=== PATIENT | female | born 1960 | race Caucasian/White ===

== ENCOUNTER → 2018-04-23 | Outpatient (CLI) | payer OTHER ==
[~2018-04-23] MED LIST: CARI350 PO; CODACE30 PO; CYCL10 PO; ESTR2 PO; Flagyl500 MG PO; HYDR1TAB94 PO; IBUP800 PO; IBUPROFEN PM S1 EACH PO; OXYACE5T PO; RXOXYACE PO; TAMS.4ER PO; TRAZ50 PO; VITAMINS
== END ==
LOC: LAB 09:27 → LAB SHORT 09:27
DX: N39.0 Urinary tract infection, site not specified (principal)
CPT/HCPCS: 87077; 87086; 87186

== ENCOUNTER → 2018-10-21 | Outpatient (CLI) | payer OTHER ==
[2018-10-21 17:30] LABS: Appearance, Urine Clear (Clear); Bilirubin, Urine Neg (Neg); Blood, Urine 2+ (Neg); Color, Urine Yellow (P-Yellow); Glucose Qualitative, Urine Neg (Neg); Ketones, Urine Neg (Neg); Leukocyte Esterase, Urine 1+ (Neg); Nitrite, Urine Neg (Neg); Protein, Urine Neg (Neg); Specific Gravity, Urine 1.015 (1.003-1.022); Urobilinogen, Urine NORM (Normal)
[2018-10-21 17:40] LABS: Bacteria Many /hpf; Squamous Epithelial Cells Few /hpf (Few)
== END ==
LOC: LAB SHORT 13:00 → LAB SRC 13:00
PROVIDERS: Registered Nurse
DX: R30.0 Dysuria (principal)
CPT/HCPCS: 81001; 87077; 87086; 87186

== ENCOUNTER → 2018-11-04 | Outpatient (CLI) | payer OTHER | END | disposition home or self-care (01) | LOC: LAB SHORT 18:20 → LAB 18:20 | DX: R30.0 Dysuria (principal) | CPT/HCPCS: 87086 ==

== ENCOUNTER → 2019-08-13 | Outpatient (CLI) | payer OTHER ==
[2019-08-13 18:14] LABS: Bilirubin, Urine Neg (Neg); Blood, Urine 4+ (Neg); Glucose Qualitative, Urine Neg (Neg); Ketones, Urine 1+ (Neg); Leukocyte Esterase, Urine 3+ (Neg); Nitrite, Urine Pos (Neg); Protein, Urine 2+ (Neg); Urobilinogen, Urine NORM (Normal)
[2019-08-13 18:41] LABS: Appearance, Urine Cloudy (Clear); Color, Urine Yellow (P-Yellow)
[2019-08-13 18:44] LABS: Red Blood Cells, Urine 0-2 /hpf (0-2); Squamous Epithelial Cells Mod /hpf (Few); White Blood Cells, Urine 25-50 /hpf (0-5)
[2019-08-13 18:45] LABS: Bacteria Many /hpf
== END | disposition home or self-care (01) ==
LOC: LAB 17:11 → LAB SHORT 17:11
PROVIDERS: Registered Nurse
DX: R30.0 Dysuria (principal)
CPT/HCPCS: 81001; 87077; 87086; 87186

== ENCOUNTER → 2020-01-24 | Outpatient (CLI) | payer OTHER ==
[2020-01-24 18:00] LABS: Bilirubin, Urine Neg (Neg); Blood, Urine 4+ (Neg); Glucose Qualitative, Urine Neg (Neg); Ketones, Urine 1+ (Neg); Leukocyte Esterase, Urine 3+ (Neg); Nitrite, Urine Pos (Neg); Protein, Urine 2+ (Neg); Urobilinogen, Urine NORM (Normal)
[2020-01-24 18:03] LABS: Appearance, Urine Hazy (Clear); Color, Urine Yellow (P-Yellow)
[2020-01-24 18:18] LABS: Squamous Epithelial Cells Not Seen /hpf (Few); White Blood Cells, Urine TNTC /hpf (0-5)
[2020-01-24 18:19] LABS: Bacteria Many /hpf; Hyaline Casts 0-2 /lpf (0-2); Mucus Light (0-Heavy)
== END | disposition home or self-care (01) ==
LOC: LAB SHORT 16:55 → LAB 16:55
PROVIDERS: Registered Nurse
DX: R30.0 Dysuria (principal)
CPT/HCPCS: 81001; 87077; 87086; 87186

== ENCOUNTER → 2020-08-17 | Outpatient (CLI) | payer OTHER ==
[2020-08-17 19:54] LABS: Appearance, Urine Hazy (Clear); Bilirubin, Urine Neg (Neg); Blood, Urine 5+ (Neg); Color, Urine Yellow (P-Yellow); Glucose Qualitative, Urine Neg (Neg); Ketones, Urine Neg (Neg); Leukocyte Esterase, Urine 3+ (Neg); Nitrite, Urine Pos (Neg); Protein, Urine 1+ (Neg); Specific Gravity, Urine 1.025 (1.003-1.022); Urobilinogen, Urine NORM (Normal)
[2020-08-17 20:08] LABS: Bacteria Many /hpf; Red Blood Cells, Urine 0-2 /hpf (0-2); Squamous Epithelial Cells Few /hpf (Few); White Blood Cells, Urine 25-50 /hpf (0-5)
== END | disposition home or self-care (01) ==
LOC: LAB SHORT 18:07 → LAB 18:07
PROVIDERS: Registered Nurse
DX: R30.0 Dysuria (principal)
CPT/HCPCS: 81001; 87077; 87086; 87186

== ENCOUNTER 2021-05-22 19:41 | Inpatient (IN) | payer OTHER ==
[~2021-05-22] VITALS: Ht 157.5 cm; Wt 61.2 kg
[2021-05-22 20:21] LABS: Hematocrit 36.2 % (33.0-51.0); Hemoglobin 12.2 g/dL (11.5-16.0); Mean Corpuscular HGB 29.3 pg (26.0-34.0); Mean Corpuscular HGB Conc 33.7 g/dL (31.5-36.5); Mean Corpuscular Volume 87 fL (80-100); Platelet Count 152 K/mm3 (150-400); RDW Coefficient Variation 12.7 % (11.7-14.2); RDW Standard Deviation 40.4 fL (35.1-46.3); Red Blood Cell Count 4.17 M/mm3 (3.80-5.20); White Blood Cell Count 1.52 K/mm3 (4.00-11.30)
[2021-05-22 20:47] LABS: BAND PERCENT MAN 32 % (0-8); BASOPHILS PERCENT MAN 0 % (0-2); EOSINOPHILS PERCENT MAN 0 % (0-6); LYMPHOCYTES ABSOLUTE MAN 0.15 K/mm3 (0.84-5.20); LYMPHOCYTES PERCENT MAN 10 % (21-46); METAMYELOCYTE ABSOLUTE MAN 0.06 K/mm3 (0.00-0.00); METAMYELOCYTE PERCENT MAN 4 % (0-0); MONOCYTES ABSOLUTE MAN 0.09 K/mm3 (0.16-1.47); MONOCYTES PERCENT MAN 6 % (4-13); MYELOCYTE ABSOLUTE MAN 0.03 K/mm3 (0.00-0.00); MYELOCYTE PERCENT MAN 2 % (0-0); NEUTROPHILS ABSOLUTE MAN 1.18 K/mm3 (1.96-9.15); SEG NEUTROPHILS PERCENT MAN 46 % (41-73); TOTAL CELLS COUNTED 50
[2021-05-22 20:49] LABS: PCO2 Arterial 31.6 mmHg (35-45); PO2 Arterial 57.8 mmHg (80-100); pH Blood Arterial 7.38 (7.35-7.45)
[2021-05-22 21:02] LABS: C-Reactive Protein, High Sens. >190.000 mg/L (0.000-3.000)
[2021-05-22] MEDS ORDERED: BUPRENORPHINE HC8 MG SL (21:24)
[2021-05-22 22:34] LABS: Alanine Aminotransfer (ALT/SGP 47 U/L (12-78); Albumin, Blood 2.3 g/dL (3.4-5.0); Albumin/Globulin Ratio 0.5 (0.8-1.8); Alk Phos 253 U/L (50-136); Anion Gap 16 mmol/L (6-16); Aspartate Aminotrans (AST/SGOT 151 U/L (12-37); Bilirubin, Total 1.4 mg/dL (0.1-1.0); Blood Urea Nitrogen 65 mg/dL (8-24); Bun/Creatinine Ratio 17.2 (12.0-20.0); CO2, Blood 19 mmol/L (21-32); CPK Creatine Kinase 143 U/L (26-193); Calcium, Blood 7.9 mg/dL (8.5-10.1); Chloride, Blood 99 mmol/L (98-108); Creatinine, Blood 3.78 mg/dL (0.40-1.00); Globulin, Blood 4.4 g/dL (2.2-4.0); Glomerular Filtration Rate 12 (60-); Glucose, Blood 53 mg/dL (70-99); Potassium, Blood 3.4 mmol/L (3.5-5.5); Sodium, Blood 134 mmol/L (136-145); Total Protein, Blood 6.7 g/dL (6.4-8.2)
[2021-05-22 22:35] LABS: Troponin I <0.015 ng/mL (0.000-0.040)
[2021-05-22 23:21] LABS: International Normalized Ratio 1.01; Prothrombin Time Results 10.9 Sec (9.7-11.5)
--- NOTE | 2021-05-23 02:20 | NUR ---
PT ARRIVED TO ICU FROM ED VIA GURNEY. PT TRANSFERRED TO ICU BED VIA SLIDE SHEET, PT COMPLAINING OF 10/10 PAIN WITH MOVEMENT. PT HAD HEPARIN INFUSING AT 15 UNITS/KG/HR UPON ARRIVAL. AIRVO IN PLACE, SETTINGS 60L 95% WITH SPO2 >90%. SKIN INTACT. HR 90'S SR ON MONITOR. SBP 80'S. PT ALERT AND ORIENTED, HAVING A DIFFICULT TIME VERBALIZING STATES THAT IT CAUSES HER PAIN. LUNGS CLEAR WITH DIM BASES. HYPOACTIVE BT'S.
[2021-05-23 03:33] LABS: Hematocrit 32.5 % (33.0-51.0); Hemoglobin 11.2 g/dL (11.5-16.0); Mean Corpuscular HGB 29.6 pg (26.0-34.0); Mean Corpuscular HGB Conc 34.5 g/dL (31.5-36.5); Mean Corpuscular Volume 86 fL (80-100); Mean Platelet Volume 11.1 fL (9.1-12.4); Platelet Count 123 K/mm3 (150-400); RDW Coefficient Variation 12.7 % (11.7-14.2); RDW Standard Deviation 40.3 fL (35.1-46.3); Red Blood Cell Count 3.78 M/mm3 (3.80-5.20)
[2021-05-23 03:35] LABS: BASOPHILS ABSOLUTE AUTO 0.01 K/mm3 (0.00-0.23); BASOPHILS PERCENT AUTO 1 % (0-2); EOSINOPHILS PERCENT AUTO 0 % (0-6); IMMATURE GRAN ABSOLUTE AUTO 0.02 K/mm3 (0.00-0.10); IMMATURE GRAN PERCENT AUTO 2 % (0-1); LYMPHOCYTES ABSOLUTE AUTO 0.06 K/mm3 (0.84-5.20); LYMPHOCYTES PERCENT AUTO 7 % (21-46); MONOCYTES ABSOLUTE AUTO 0.02 K/mm3 (0.16-1.47); MONOCYTES PERCENT AUTO 2 % (4-13); NEUTROPHILS ABSOLUTE AUTO 0.72 K/mm3 (1.96-9.15); NEUTROPHILS PERCENT AUTO 87 % (41-73)
[2021-05-23 03:36] LABS: White Blood Cell Count 0.83 K/mm3 (4.00-11.30)
[2021-05-23 03:54] LABS: Alanine Aminotransfer (ALT/SGP 44 U/L (12-78); Albumin/Globulin Ratio 0.5 (0.8-1.8); Alk Phos 227 U/L (50-136); Anion Gap 14 mmol/L (6-16); Aspartate Aminotrans (AST/SGOT 129 U/L (12-37); Bilirubin, Total 1.5 mg/dL (0.1-1.0); Blood Urea Nitrogen 67 mg/dL (8-24); Bun/Creatinine Ratio 18.6 (12.0-20.0); CO2, Blood 19 mmol/L (21-32); CPK Creatine Kinase 118 U/L (26-193); Calcium, Blood 7.4 mg/dL (8.5-10.1); Chloride, Blood 101 mmol/L (98-108); Creatinine, Blood 3.61 mg/dL (0.40-1.00); Glomerular Filtration Rate 13 (60-); Glucose, Blood 85 mg/dL (70-99); Potassium, Blood 3.5 mmol/L (3.5-5.5); Sodium, Blood 134 mmol/L (136-145); Troponin I <0.015 ng/mL (0.000-0.040)
--- NOTE | 2021-05-23 04:30 | NUR ---
CALL PLACED TO DR DANG REGARDING PT'S CRITICAL WBC VALUE OF 0.83. ALSO NOTIFIED ABOUT DECREASING BLOOD GLUCOSE LEVELS AND BLOOD PRESSURE 88/50 ON 5 MCG/KG OF LEVOPHED. NEW ORDERS PLACED.
--- NOTE | 2021-05-23 07:22 | NUR ---
SHIFT SUMMARY PT RESTING IN BED, PRN ATIVAN RECENTLY GIVEN. PT AWAKENS TO VERBAL STIMULI. AIRVO CONTINUES AT 60L 95%, PT PULLED NC OUT OF NOSE SATS DROPPED TO LOW 80'S MASK PLACED BACK ON PT SATS BACK UP TO 90'S. PT CONTINUES TO COMPLAIN OF PAIN WITH ANY MOVEMENT, DECLINED REPOSITIONING. HEPARIN INFUSING AT 15 UNITS/KG/HR, LEVO AT 8 MCG/KG AND D51/2NS AT 75 ML. LUNGS CONTINUE TO BE CLEAR WITH DIM BASES.
--- NOTE | 2021-05-23 07:30 | NUR ---
Receieved report from Miriam QUINTANA. Patient on airvo with mask and settings of 60L 94% and sats 87-91%. She is very slow to answer and difficult to understand. Used swabs to wet mouth and was a little better to unserstand. He IV was laying in bed and placed PICC line in HEIDY 75 length, 6 out. She has 18ga RAC and moved line to PICC , flushed and SL's. She is able to MATHEWS but painful. Upper and lower quads painful to palpation. US was just here and I belive did kidneys.
--- NOTE | 2021-05-23 09:49 | NUR ---
Recheck CBG and was [address] Garcia and stopped D5NS at 75 and started D10 at 75ml/hr. Increased Heparin yo 17 units/kg/hr, Levophed is at 24 mcg/min and systolic 100's. Dr Garcia had me start LR Bolus earlier with little success.
[2021-05-23 12:04] LABS: Source, Urine Catheter
--- NOTE | 2021-05-23 12:05 | NUR ---
Patient has been having decreased sats mid 80 and had RT max out AirVo to 60L 95% and no change. Talked with Dr Garcia whom had already had conversation with patient and we intubated at 1123. We intubated with Propofol and succ's. Placed 16fr Temp hoffman. 8.0 ET and 25 cm at teeth.
[2021-05-23 12:16] LABS: Hematocrit 28.7 % (33.0-51.0); Hemoglobin 9.6 g/dL (11.5-16.0); Mean Corpuscular HGB 29.4 pg (26.0-34.0); Mean Corpuscular HGB Conc 33.4 g/dL (31.5-36.5); Mean Corpuscular Volume 88 fL (80-100); Mean Platelet Volume 11.3 fL (9.1-12.4); Platelet Count 125 K/mm3 (150-400); RDW Coefficient Variation 12.7 % (11.7-14.2); RDW Standard Deviation 41.1 fL (35.1-46.3); Red Blood Cell Count 3.26 M/mm3 (3.80-5.20)
[2021-05-23 12:17] LABS: BASOPHILS ABSOLUTE AUTO 0.01 K/mm3 (0.00-0.23); BASOPHILS PERCENT AUTO 1 % (0-2); EOSINOPHILS PERCENT AUTO 0 % (0-6); IMMATURE GRAN ABSOLUTE AUTO 0.03 K/mm3 (0.00-0.10); IMMATURE GRAN PERCENT AUTO 3 % (0-1); LYMPHOCYTES ABSOLUTE AUTO 0.08 K/mm3 (0.84-5.20); LYMPHOCYTES PERCENT AUTO 8 % (21-46); MONOCYTES ABSOLUTE AUTO 0.02 K/mm3 (0.16-1.47); MONOCYTES PERCENT AUTO 2 % (4-13); NEUTROPHILS ABSOLUTE AUTO 0.85 K/mm3 (1.96-9.15); NEUTROPHILS PERCENT AUTO 86 % (41-73)
[2021-05-23 12:19] LABS: White Blood Cell Count 0.99 K/mm3 (4.00-11.30)
[2021-05-23 12:29] LABS: Albumin, Blood 1.4 g/dL (3.4-5.0); Albumin/Globulin Ratio 0.4 (0.8-1.8); Bilirubin, Total 1.3 mg/dL (0.1-1.0); Bun/Creatinine Ratio 23.7 (12.0-20.0); Calcium, Blood 6.6 mg/dL (8.5-10.1); Creatinine, Blood 2.79 mg/dL (0.40-1.00); Globulin, Blood 3.3 g/dL (2.2-4.0); Potassium, Blood 3.6 mmol/L (3.5-5.5); Total Protein, Blood 4.7 g/dL (6.4-8.2)
[2021-05-23 13:10] LABS: Appearance, Urine Hazy (Clear); Bilirubin, Urine Neg (Neg); Blood, Urine 2+ (Neg); Color, Urine Amber (P-Yellow); Glucose Qualitative, Urine Neg (Neg); Ketones, Urine Neg (Neg); Leukocyte Esterase, Urine 1+ (Neg); Nitrite, Urine Neg (Neg); Protein, Urine 3+ (Neg); Urobilinogen, Urine NORM (Normal)
--- NOTE | 2021-05-23 13:14 | NUR ---
eCHOCARDIOGRAM USING 0.50ML OF DEFINITY CONTRAST PERFORMED.
[2021-05-23 13:19] LABS: Amorphous Mod (0-Heavy); Bacteria Few /hpf; Granular Casts 0-2 /lpf (0); Hyaline Casts 0-2 /lpf (0-2); Squamous Epithelial Cells Mod /hpf (Few)
--- NOTE | 2021-05-23 14:00 | NUR ---
Patient is intubated and sedated and resting well with vent settings 16/350/90%/15 and sats 91%. Picc Line in HEIDY infusing Levophed at 30 mcg/min, Vasopressin 0.04 units/min, Propofol at 20 mcg/kg/min, 2nd bolus LR, Calcium cloride and Vanco, NS TKO, D10 at 75 ml/hr. Gonzalez has dark zeb urine in adequate amounts.
[2021-05-23 14:08] LABS: PO2 Arterial 59.9 mmHg (80-100); pH Blood Arterial 7.28 (7.35-7.45)
--- NOTE | 2021-05-23 16:00 | NUR ---
Patient went and had CT abd and nuc med study for PE, results pending. No other vent or gtt changes.
[2021-05-23 17:13] LABS: Hematocrit 30.4 % (33.0-51.0); Hemoglobin 10.2 g/dL (11.5-16.0); Mean Corpuscular HGB 29.5 pg (26.0-34.0); Mean Corpuscular HGB Conc 33.6 g/dL (31.5-36.5); Mean Corpuscular Volume 88 fL (80-100); Mean Platelet Volume 11.8 fL (9.1-12.4); Platelet Count 96 K/mm3 (150-400); RDW Coefficient Variation 13.2 % (11.7-14.2); RDW Standard Deviation 42.5 fL (35.1-46.3); Red Blood Cell Count 3.46 M/mm3 (3.80-5.20); White Blood Cell Count 3.29 K/mm3 (4.00-11.30)
[2021-05-23 17:30] LABS: Albumin, Blood 1.4 g/dL (3.4-5.0); Albumin/Globulin Ratio 0.4 (0.8-1.8); Bilirubin, Total 1.4 mg/dL (0.1-1.0); Bun/Creatinine Ratio 23.6 (12.0-20.0); Calcium, Blood 8.4 mg/dL (8.5-10.1); Creatinine, Blood 2.8 mg/dL (0.40-1.00); Globulin, Blood 3.3 g/dL (2.2-4.0); Magnesium, Blood 1.9 mg/dL (1.6-2.4); Potassium, Blood 3.6 mmol/L (3.5-5.5); Total Protein, Blood 4.7 g/dL (6.4-8.2)
[2021-05-23 17:41] LABS: BAND PERCENT MAN 31 % (0-8); BASOPHILS PERCENT MAN 0 % (0-2); EOSINOPHILS PERCENT MAN 0 % (0-6); LYMPHOCYTES ABSOLUTE MAN 0.19 K/mm3 (0.84-5.20); LYMPHOCYTES PERCENT MAN 6 % (21-46); METAMYELOCYTE ABSOLUTE MAN 1.05 K/mm3 (0.00-0.00); METAMYELOCYTE PERCENT MAN 32 % (0-0); MONOCYTES ABSOLUTE MAN 0.13 K/mm3 (0.16-1.47); MONOCYTES PERCENT MAN 4 % (4-13); SEG NEUTROPHILS PERCENT MAN 27 % (41-73); TOTAL CELLS COUNTED 100
--- NOTE | 2021-05-23 18:00 | NUR ---
Patient has been resting well on vent with minimal sedation. She is in bilateral soft wrist restraints to prevent self extubation. Vent settings are 16/350/90%/15 and sats 92%. She has PICC line HEIDY infusing Levophed 30 mcg/kg/min, Vaospressin 0.04 units/min, D10 at 75 ml/hr, Propofol at 20 mcg/kg/min, NS TKO. Gonzalez had 600 zeb colored urine out. She has 18ga IV in RAC that draws well for labs.
--- NOTE | 2021-05-23 18:35 | NUR ---
Friends are by and dad decided not to come. Friends still feel that she has a chance as she came through a similar tragedy. She has sjown no new changes for the positive.
--- NOTE | 2021-05-23 19:30 | NUR ---
REPORT RECEIVED-CARE ASSUMED. PT VENTED-SEDATED, GTTS NOTED IN FLOWSHEET. CONTINUE ASSESSMENT AND CARE.
--- NOTE | 2021-05-23 20:17 | NUR ---
HEPARIN RATE DOSE CHANGE PER PHARMACY ORDER- TO 16.5 UNITS/KR/HR, 19.5 ML/HR. CHACKED WITH RICKY QUINTANA. HOUSESMITH AWARE.
[2021-05-24 01:18] LABS: PCO2 Arterial 47.8 mmHg (35-45); PO2 Arterial 94.4 mmHg (80-100); pH Blood Arterial 7.05 (7.35-7.45)
--- NOTE | 2021-05-24 01:56 | NUR ---
UPDATE: ONGOING DECLINE IN PT STATUS. POST BATH PT WITH DECREASED SAT-PEAK PRESSURING ON VENT-PLACED VENT ON 100% AND-RT CALLED STAT TO ROOM-INCREASED PROPOFOL GTT TO 30, PT CONTINUE TO PEAK PRESSURE ON CTQV-WR-PPDA PLACEMENT CHECKED-GOOD/EQUAL BILAT BS, PLACEMENT UNCHANGED @ 25. INCREASED PROPOFOL GTT FOR PT COMFORT-PT MOVING ARMS AND LEGS- CONTINUE ASSESSMENT-RT IN ROOM-CHARGE NURSE NOTIFIED- SAT PROB POSITION CHECKED AND CHANGED-CONTINUE TO INCREASE PROPOFOL-RT REMOVED PT FROM VENT AND BAGGED-100%, NOTIFIED-ATIVAN PUSH [id number] BAGGING @ 100%- ORDERED FENTYNAL C[facility] AISLE CASHIER-NIMBEX. TO4 4 OUT OF 4 @ SENSITIVITY OF 8 PRE START OF NIMBEX- PT RETURNED TO VENT- SETTING CHANGED AND RT DISCUSSED WITH MD. PT'S TEMP INCREASING-ICE BAGS PLACE IN GROIN-ARMPITS. ROOM TEMP LOWERED, NOTIFIED-TYLENOL ORDERED AND GIVEN. CONTINUE ASSESSMENTS AND CARE. ORDERED PRONE POSITION TILL DAYSHIFT-PLACE IN PRONE @ 0100. TO4 CONTINUES 4 OUT OF 4 @ SENSITIVITY 8. 0 OUT OF 4 @ LOWER SENSITIVITY. ANG DONE-SEE LAB RESULTS-CRITICAL LABS CALLED TO -DR. LEAVITT-BICARB GTT ORDERED. CONTINUE CARE.
--- NOTE | 2021-05-24 02:12 | NUR ---
SAT MONITOR -PROBE NOT READING-ATTEMPTED FORHEAD,EAR,FOOT,FINGER,NOSE-DR. LEAVITT AWARE-PAO2 CURRENTLY 94.4 WITH SATS 94.9 ON ABG.
--- NOTE | 2021-05-24 03:24 | NUR ---
A-LINE -LINE CHANGED AND ZEROED
--- NOTE | 2021-05-24 03:38 | NUR ---
LABS SENT. TO4 0/0. NIMBEX WEAN TO 2. INCRASED TEMP-COOLING BLANKET REMAINS ICE CHANGED OUT ON GROIN AN ARMPITS. NUCLEAR TECHNICIAN AT BEDSIDE. CONTINUE ASSESSMENT
[2021-05-24 05:17] LABS: Hematocrit 26.6 % (33.0-51.0); Mean Corpuscular HGB 30.2 pg (26.0-34.0); Mean Corpuscular HGB Conc 33.8 g/dL (31.5-36.5); Mean Corpuscular Volume 89 fL (80-100); Mean Platelet Volume 12.9 fL (9.1-12.4); NRBC ABSOLUTE 0.02 K/mm3 (0.00-0.02); NRBC Auto 0.4 /100 WBC (0.0-0.2); RDW Coefficient Variation 13.3 % (11.7-14.2); RDW Standard Deviation 43.7 fL (35.1-46.3); Red Blood Cell Count 2.98 M/mm3 (3.80-5.20); White Blood Cell Count 5.25 K/mm3 (4.00-11.30)
--- NOTE | 2021-05-24 05:22 | NUR ---
CHANGED TEMP FROM APONTE TO RECTAL.
[2021-05-24 05:40] LABS: Magnesium, Blood 2.6 mg/dL (1.6-2.4)
[2021-05-24 05:43] LABS: Platelet Count 21 K/mm3 (150-400)
[2021-05-24 05:48] LABS: Alanine Aminotransfer (ALT/SGP 38 U/L (12-78); Albumin, Blood 1.2 g/dL (3.4-5.0); Albumin/Globulin Ratio 0.4 (0.8-1.8); Alk Phos 231 U/L (50-136); Anion Gap 21 mmol/L (6-16); Aspartate Aminotrans (AST/SGOT 185 U/L (12-37); Bilirubin, Total 1.5 mg/dL (0.1-1.0); Blood Urea Nitrogen 72 mg/dL (8-24); Bun/Creatinine Ratio 22.4 (12.0-20.0); CO2, Blood 11 mmol/L (21-32); Chloride, Blood 99 mmol/L (98-108); Creatinine, Blood 3.22 mg/dL (0.40-1.00); Glomerular Filtration Rate 15 (60-); Glucose, Blood 82 mg/dL (70-99); Potassium, Blood 5.9 mmol/L (3.5-5.5); Sodium, Blood 131 mmol/L (136-145); Total Protein, Blood 4.2 g/dL (6.4-8.2); Vancomycin, Random 15.6 ug/mL
[2021-05-24 06:02] LABS: Phosphorus, Blood 8.6 mg/dL (2.5-4.9)
--- NOTE | 2021-05-24 06:13 | NUR ---
DR. LEAVITT NOTIFIED-WIDE QRS,LABS, SKIN, TEMP- MD ON HIS WAY IN TO BEDSIDE-NEW ORDERS PLACED NOW.
[2021-05-24 06:20] LABS: BAND PERCENT MAN 40 % (0-8); BASOPHILS PERCENT MAN 0 % (0-2); EOSINOPHILS PERCENT MAN 0 % (0-6); LYMPHOCYTES ABSOLUTE MAN 0.15 K/mm3 (0.84-5.20); LYMPHOCYTES PERCENT MAN 3 % (21-46); METAMYELOCYTE PERCENT MAN 2 % (0-0); MONOCYTES ABSOLUTE MAN 0.15 K/mm3 (0.16-1.47); MONOCYTES PERCENT MAN 3 % (4-13); NEUTROPHILS ABSOLUTE MAN 4.83 K/mm3 (1.96-9.15); SEG NEUTROPHILS PERCENT MAN 52 % (41-73); TOTAL CELLS COUNTED 100
--- NOTE | 2021-05-24 07:21 | NUR ---
AFTER NOTIFIED-ON HIS WAY TO BEDSIDE. 0629 PT CODE STARTED-SEE CODE BLUE SHEET.
--- NOTE | 2021-05-24 09:07 | NUR ---
Supportive call to family. Pt was in ER last night and sent home. Spoke with daughter on strategies of care for her father. Offered support for gief over her mother. She realyed her mother has been very sick. She fears loosing both parents. Was graterful for the care from the hospital and staff. Will follow up with the children. Will notify chaplian services.
--- NOTE | 2021-05-24 10:21 | NUR ---
Spiritual care phone call conducted. I called lalo's daughter, Pooja, and provided grief support and prayer. She responds well and shows signs of being comforted. I also informed her about some of her mother's belongs that were left behind that we are holding for her in ICU. I will continue to remain available to patient and family.
--- NOTE | 2021-05-24 12:28 | NUR ---
pt belongings sent sent to [facility] she is wearing her wedding ring and cell phone and purse and galsses and bracelet.
== END 2021-05-24 06:57 | DRG 871 ==
LOC: ER 19:41 → ERHOLD 23:19 → ICUW 23:19 → ER 23:19 → ICUW 05-23 01:30 → ERHOLD 05-23 01:30 → ICUW 05-24 06:57
PROVIDERS: Emergency Medicine; Internal Medicine; Internal Medicine Critical Care Medicine; ADMIT Internal Medicine
PROC: 8E0ZXY6 Isolation (ICD-10-PCS; 2021-05-22)
PROC: 3E0333Z Introduction of Anti-inflammatory into Peripheral Vein, Percutaneous Approach (ICD-10-PCS; 2021-05-22)
PROC: XW033E5 Introduction of Remdesivir Anti-infective into Peripheral Vein, Percutaneous Approach, New Technology Group 5 (ICD-10-PCS; 2021-05-22)
PROC: 0BH17EZ Insertion of Endotracheal Airway into Trachea, Via Natural or Artificial Opening (ICD-10-PCS; 2021-05-23)
PROC: 5A1935Z Respiratory Ventilation, Less than 24 Consecutive Hours (ICD-10-PCS; 2021-05-23)
PROC: 02HV33Z Insertion of Infusion Device into Superior Vena Cava, Percutaneous Approach (ICD-10-PCS; 2021-05-23)
PROC: 3E043XZ Introduction of Vasopressor into Central Vein, Percutaneous Approach (ICD-10-PCS; 2021-05-23)
PROC: 5A12012 Performance of Cardiac Output, Single, Manual (ICD-10-PCS; principal; 2021-05-24)
DX: A40.3 Sepsis due to Streptococcus pneumoniae (principal); U07.1 COVID-19; J12.82 Pneumonia due to coronavirus disease 2019; J96.21 Acute and chronic respiratory failure with hypoxia; R65.21 Severe sepsis with septic shock; J13 Pneumonia due to Streptococcus pneumoniae; Z78.1 Physical restraint status; J44.0 Chronic obstructive pulmonary disease with (acute) lower respiratory infection; J90 Pleural effusion, not elsewhere classified; N17.9 Acute kidney failure, unspecified; E87.2 Acidosis; E87.5 Hyperkalemia; I46.9 Cardiac arrest, cause unspecified; I49.01 Ventricular fibrillation; R74.01 Elevation of levels of liver transaminase levels; E16.2 Hypoglycemia, unspecified; G89.29 Other chronic pain; Z79.899 Other long term (current) drug therapy; Z98.890 Other specified postprocedural states; Z90.710 Acquired absence of both cervix and uterus; Z87.440 Personal history of urinary (tract) infections
CPT/HCPCS: 31500; 36415; 36569; 36600; 36620; 71045; 74176; 76770; 78580; 80053; 80202; 81001; 82330; 82533; 82550; 82803; 82947; 83735; 83880; 84100; 84484; 85025; 85379; 85610; 85730; 86141; 87040; 87070; 87086; 87186; 87205; 87449; 93005; 93010; 94002; 94003; 96365-59; 96366-59; 96367-59; 96375-59; 99285-25; A9270; A9540; C1751; C1769; C8929; J0330; J0456; J0696; J1100; J1644; J1720; J1815; J2060; J2704; J3010; J3360; J3370; J3480; J7030; J7040; J7042; J7050; J7060; J7070; J7120; Q9957